=== PATIENT | female | born 1995 | race Caucasian/White ===

== ENCOUNTER 2018-06-07 17:18 | Inpatient (IN) | payer OTHER ==
[~2018-06-07] VITALS: Ht 165.1 cm; Wt 105.3 kg
[2018-06-07] MEDS ORDERED: SODIUM CHLORIDE FLUSH 10ML SYR IVF ONE (18:00)
[2018-06-07] MEDS ORDERED: ONDANSETRON 2MG/ML, 2ML IVPush ONE (18:30)
[2018-06-07] MEDS ORDERED: MORPHINE SULFATE 4 MG/ML, 1ML IVPush PRN (18:30)
[2018-06-07 18:43] LABS: MEAN CORPUSCULAR HEMOGLOBIN 24.5 pg (27.0-34.8); MEAN CORPUSCULAR HGB CONC 32.2 g/dL (32.4-35.8); MEAN CORPUSCULAR VOLUME 76.1 fL (80-100); MEAN PLATELET VOLUME 9.6 fL (7.4-10.4); PLATELET COUNT 299 x10^3/uL (130-400); RED BLOOD COUNT 4.65 x10^6/uL (3.82-5.3); RED CELL DISTRIBUTION WIDTH 17.8 % (9.6-15.2)
[2018-06-07 18:51] LABS: ALANINE AMINOTRANSFERASE 36 U/L (12-78); ALBUMIN 3.8 g/dL (3.4-5.0); ANION GAP 10 mmol/L (5-15); CALCIUM 8.9 mg/dL (8.5-10.1); CHLORIDE 106 mmol/L (98-107); CREATININE 0.84 mg/dL (0.55-1.02)
[2018-06-07 18:56] LABS: ALKALINE PHOSPHATASE 100 U/L (45-117); BILIRUBIN,TOTAL 0.6 mg/dL (0.2-1.0); TOTAL PROTEIN 8.2 g/dL (6.4-8.2)
[2018-06-07 19:20] LABS: MD YES
[2018-06-07 19:22] LABS: BAND#(MANUAL) 0.14 x10^3/uL; BANDS%(MANUAL) 1 % (0-7); LYMPH#(MANUAL) 3.17 x10^3/uL (1-3.4); LYMPHS% (MANUAL) 22 % (22-44); MONOS#(MANUAL) 0.43 x10^3/uL (0.3-2.7); MONOS% (MANUAL) 3 % (2-9); SEGS% (MANUAL) 74 % (42-75)
[2018-06-07 19:23] LABS: ANISOCYTOSIS 1+
[2018-06-07 19:24] LABS: HYPOCHROMIA 1+; MICROCYTOSIS 1+; POLYCHROMASIA 1+
[2018-06-07 19:25] LABS: <PLATELET ESTIMATE> ADEQUATE; LARGE PLATELETS 1+; TOXIC GRAN 1+
[2018-06-07 19:36] LABS: CULTURE INDICATED? YES; MICROSCOPIC INDICATED
[2018-06-07] MEDS ORDERED: MORPHINE SULFATE 4 MG/ML, 1ML ONE (21:50)
[2018-06-07] MEDS ORDERED: METRONIDAZOLE PMX 500MG/100ML 100 ML ONE (21:50)
[2018-06-07] MEDS ORDERED: ONDANSETRON ODT 4 MG ONE (21:50)
[2018-06-07] MEDS ORDERED: CEFTRIAXONE PMX 1GM/50ML 50 ML ONE (21:50)
[2018-06-07] MEDS ORDERED: DOXYCYCLINE 100MG TABLET ONE (21:51)
[2018-06-07] MEDS ORDERED: DOXYCYCLINE 100MG TABLET PO ONE (22:00)
[2018-06-07] MEDS ORDERED: CEFTRIAXONE 1,000 MG in SODIUM CHLORIDE 0.9% 50 ML IVPB ONE (22:00)
[2018-06-07] MEDS ORDERED: SODIUM CHLORIDE FLUSH 10ML SYR IVF PRN (22:00)
[2018-06-07] MEDS ORDERED: METRONIDAZOLE PMX 500MG/100ML 100 ML IVPB ONE (22:00)
[2018-06-07] MEDS ORDERED: CEFOTETAN PMX 2GM/50ML 50 ML IV ONE (22:30)
[2018-06-07] MEDS ORDERED: DOXYCYCLINE 100 MG in DEXTROSE 5% 250 ML IV ONE (22:30)
[2018-06-07] MEDS ORDERED: METRONIDAZOLE PMX 500MG/100ML 100 ML IV ONE (22:30)
[2018-06-07 23:00] VITALS: BP 129/53
[2018-06-07] MEDS ORDERED: ONDANSETRON ODT 4 MG PO PRN (23:30)
[2018-06-07] MEDS ORDERED: ACETAMINOPHEN 325 MG TABLET PO PRN (23:30)
[2018-06-07] MEDS ORDERED: OXYcodone/APAP 5/325MG TABLET PO PRN (23:30)
[2018-06-07] MEDS ORDERED: ZOLPIDEM 5MG TABLET PO PRN (23:30)
[2018-06-07] MEDS ORDERED: morphine SULFATE 10 MG/ML, 1ML IV PRN (23:30)
[2018-06-07] MEDS ORDERED: ONDANSETRON 2MG/ML, 2ML IV PRN (23:30)
[2018-06-08 02:51] VITALS: BP 95/52
[2018-06-08] MEDS ORDERED: BUPIVACAINE 0.25% ONE (04:06)
[2018-06-08 04:43] LABS: BASOPHILS # (AUTO) 0.07 x10^3/uL (0-0.1); BASOPHILS % (AUTO) 1 % (0-1); EOSINOPHILS # (AUTO) 0.02 x10^3/uL (0-0.4); EOSINOPHILS % (AUTO) 0 % (1-7); LYMPHOCYTES # (AUTO) 2.11 x10^3/uL (1-3.4); LYMPHOCYTES % (AUTO) 15 % (22-44); MD NO; MEAN CORPUSCULAR HEMOGLOBIN 24.3 pg (27.0-34.8); MEAN CORPUSCULAR HGB CONC 31.8 g/dL (32.4-35.8); MEAN CORPUSCULAR VOLUME 76.4 fL (80-100); MEAN PLATELET VOLUME 9.6 fL (7.4-10.4); MONOCYTES # (AUTO) 1.05 x10^3/uL (0.2-0.8); MONOCYTES % (AUTO) 8 % (2-9); NEUTROPHILS # (AUTO) 10.48 x10^3/uL (1.8-6.8); NEUTROPHILS % (AUTO) 76 % (42-75); PLATELET COUNT 277 x10^3/uL (130-400); RED BLOOD COUNT 4.31 x10^6/uL (3.82-5.3); RED CELL DISTRIBUTION WIDTH 17.6 % (9.6-15.2)
[2018-06-08 04:48] LABS: FREE T4 (FREE THYROXINE) 0.95 ng/dL (0.76-1.46); THYROID STIMULATING HORMONE 3.09 mIU/L (0.358-3.740)
[2018-06-08] MEDS ORDERED: MIDAZOLAM 1 MG/ML, 2ML ONE (04:57)
[2018-06-08] MEDS ORDERED: FENTANYL PF 250 MCG/5ML ONE (04:57)
[2018-06-08] MEDS ORDERED: SCOPOLAMINE PATCH, 1.5MG PATCH.TD72 TD ONE (05:05)
[2018-06-08] MEDS ORDERED: DEXAMETHASONE 4 MG/ML, 1ML ONE (05:11)
[2018-06-08] MEDS ORDERED: SUCCINYLCHOLINE 20 MG/ML, 10ML ONE (05:11)
[2018-06-08] MEDS ORDERED: PROPOFOL 10 MG/ML, 20ML ONE (05:11)
[2018-06-08] MEDS ORDERED: ONDANSETRON 2MG/ML, 2ML ONE (05:11)
[2018-06-08] MEDS ORDERED: BUPIVACAINE/PF-EPI 0.25% 1:200K IM ONE (05:26)
[2018-06-08] MEDS ORDERED: MEPERIDINE/PF 25MG/0.5ML IVPush PRN (05:30)
[2018-06-08] MEDS ORDERED: hydrALAzine 20 MG/ML, 1ML IV PRN (05:30)
[2018-06-08] MEDS ORDERED: OXYcodone 5 MG/5 ML ORAL.SOL UDC PO PRN (05:30)
[2018-06-08] MEDS ORDERED: FENTANYL PF 100 MCG/2ML IV PRN (05:30)
[2018-06-08] MEDS ORDERED: ALBUTEROL SULFATE 2.5 MG/3 ML NPPB PRN (05:30)
[2018-06-08] MEDS ORDERED: LORazepam 2 MG/ML, 1ML IVPush PRN (05:30)
[2018-06-08] MEDS ORDERED: LABETALOL 5MG/ML, 20ML IV PRN (05:30)
[2018-06-08] MEDS ORDERED: HYDROmorphone 1 MG/ML, 1ML IV PRN (05:30)
[2018-06-08] MEDS ORDERED: OXYcodone 5 MG/5 ML ORAL.SOL UDC ONE (06:17)
[2018-06-08] MEDS: METRONIDAZOLE PMX 500MG/100ML 100 ML IV SCH ×2 (07:24→14:47)
[2018-06-08 07:50] VITALS: BP 102/57
[2018-06-08] MEDS: CEFOTETAN PMX 2GM/50ML 50 ML IV SCH ×2 (09:29→21:36)
[2018-06-08] MEDS: DOXYCYCLINE 100 MG in DEXTROSE 5% 250 ML IV SCH ×2 (10:30→22:14)
[2018-06-08 12:31] VITALS: BP 108/60
[2018-06-08 19:00] VITALS: BP 104/68
[2018-06-08] MEDS ORDERED: morphine SULFATE 10 MG/ML, 1ML IV PRN ×2 (19:00→19:30)
[2018-06-08] MEDS ORDERED: OXYcodone/APAP 5/325MG TABLET PO PRN (19:30)
[2018-06-08] MEDS ORDERED: KETOROLAC 30 MG/1 ML IV PRN (19:30)
[2018-06-08] MEDS: IBUPROFEN 600 MG TABLET PO SCH (21:36)
[2018-06-08 23:26] VITALS: BP 97/59
[2018-06-09] MEDS: METRONIDAZOLE PMX 500MG/100ML 100 ML IV SCH ×4 (00:12→23:36)
[2018-06-09 03:47] VITALS: BP 96/59
[2018-06-09 05:12] LABS: HCT (SEDRATE) 27.5 % (34.6-47.8)
[2018-06-09] MEDS: IBUPROFEN 600 MG TABLET PO SCH ×4 (06:15→21:04)
[2018-06-09 07:28] VITALS: BP 85/50
[2018-06-09] MEDS: CEFOTETAN PMX 2GM/50ML 50 ML IV SCH ×2 (09:02→21:05)
[2018-06-09] MEDS: DOXYCYCLINE 100 MG in DEXTROSE 5% 250 ML IV SCH ×2 (09:59→22:16)
[2018-06-09 13:50] VITALS: BP 104/63
[2018-06-09 19:27] VITALS: BP 103/60
[2018-06-10 01:18] VITALS: BP 101/66
[2018-06-10 05:55] LABS: BASOPHILS # (AUTO) 0.03 x10^3/uL (0-0.1); BASOPHILS % (AUTO) 0 % (0-1); EOSINOPHILS # (AUTO) 0.07 x10^3/uL (0-0.4); EOSINOPHILS % (AUTO) 1 % (1-7); LYMPHOCYTES % (AUTO) 28 % (22-44); MD NO; MEAN CORPUSCULAR HEMOGLOBIN 24.8 pg (27.0-34.8); MEAN CORPUSCULAR HGB CONC 32.3 g/dL (32.4-35.8); MEAN CORPUSCULAR VOLUME 76.7 fL (80-100); MEAN PLATELET VOLUME 9.1 fL (7.4-10.4); MONOCYTES # (AUTO) 0.61 x10^3/uL (0.2-0.8); MONOCYTES % (AUTO) 8 % (2-9); NEUTROPHILS # (AUTO) 4.94 x10^3/uL (1.8-6.8); NEUTROPHILS % (AUTO) 63 % (42-75); PLATELET COUNT 233 x10^3/uL (130-400); RED BLOOD COUNT 3.43 x10^6/uL (3.82-5.3); RED CELL DISTRIBUTION WIDTH 17.7 % (9.6-15.2)
[2018-06-10] MEDS: IBUPROFEN 600 MG TABLET PO SCH ×2 (06:03→11:04)
[2018-06-10 07:38] VITALS: BP 118/78
[2018-06-10] MEDS: METRONIDAZOLE PMX 500MG/100ML 100 ML IV SCH (07:40)
[2018-06-10] MEDS: CEFOTETAN PMX 2GM/50ML 50 ML IV SCH (09:01)
[2018-06-10] MEDS: DOXYCYCLINE 100 MG in DEXTROSE 5% 250 ML IV SCH (10:12)
[2018-06-10] MEDS ORDERED: IBUP-1223 PO (13:28)
[2018-06-10] MEDS ORDERED: HYDR-3240 PO (13:28)
[2018-06-10] MEDS ORDERED: METR500T PO (13:29)
[2018-06-10] MEDS ORDERED: DOXY100C15 PO (13:29)
[2018-06-10] MEDS ORDERED: AMOX1TAB64 PO (13:30)
[2018-06-10] MEDS ORDERED: SENN-87 PO (13:30)
[2018-06-10] MEDS ORDERED: FERR324T8 PO (13:31)
== END 2018-06-10 14:07 | disposition home or self-care (01) | DRG 745 ==
LOC: ED 19:57 → EDIP 21:46 → 4NOR 22:31 → DCLOUNGE 06-10 13:55
PROVIDERS: ADMIT Obstetrics & Gynecology; ATTEND Obstetrics & Gynecology
PROC: 0UDB7ZZ Extraction of Endometrium, Via Natural or Artificial Opening (ICD-10-PCS; principal; 2018-06-08 12:00)
DX: N70.93 Salpingitis and oophoritis, unspecified (principal); N84.0 Polyp of corpus uteri; N71.0 Acute inflammatory disease of uterus; D64.9 Anemia, unspecified; E66.01 Morbid (severe) obesity due to excess calories; Z68.38 Body mass index [BMI] 38.0-38.9, adult; N73.9 Female pelvic inflammatory disease, unspecified
CPT/HCPCS: 36415; 74177; 76830; 80053; 81001; 83605; 84439; 84443; 84703; 85025; 85651; 86141; 86592; 86780; 86803; 87040; 87086; 87340; 87491; 87591; 87806; 88305; 96374; 96375; G0378; J0696; J1100; J2250; J2405; J2704; J3010; J3490; J7060; G0475; J0330; S0074